=== PATIENT | female | born 1995 | race African-American/Black ===

== ENCOUNTER 2017-06-14 13:02 | Emergency (ER) | payer SELFPAY ==
[~2017-06-14] VITALS: Ht 165.1 cm; Wt 70.0 kg
[~2017-06-14 13:02] MED LIST: IBUP800T23 PO
[2017-06-14 13:04] VITALS: BP 113/57; PULSE 98; RESP 18; TEMP 99; O2SAT 99
[2017-06-14] MEDS ORDERED: NAPR500T2 PO (14:55)
[2017-06-14] MEDS ORDERED: PHEN1SPR2 PO (14:55)
--- NOTE | 2017-06-14 14:55 | PD ---
HPI Chief Complaint: ENT Complaint Time Seen by Provider: 13:36 Travel History International Travel<30 days: No Contact w/Intl Traveler<30days: No Traveled to known affect area: No History of Present Illness HPI This is a 21-year-old female who presents to the emergency department with sore throat, constant, moderate severity, going on for 3 days associated with a headache. She is able to eat and drink. PFSH Past Medical History Medical History: Denies Significant Hx Developmental Delay: No Diminished Hearing: No Immunizations Current: Yes Tetanus Vaccination: < 5 Years ?: Not : 0 Para: 0 Past Surgical History Surgical History: No Previous Surgery Social History Alcohol Use: No Tobacco Use: No Substance Use: No Allergies-Medications (Allergen,Severity, Reaction): Coded Allergies: No Known Allergies (Verified Adverse Reaction, Unknown, 06/14/17) Reported Meds & Prescriptions Reported Meds & Active Scripts Active No Active Prescriptions or Reported Medications Review of Systems Except as stated in HPI: all other systems reviewed are Neg Physical Exam Narrative GENERAL:Well appearing, no acute distress SKIN: Focused skin assessment warm and dry. HEAD: Atraumatic. Normocephalic. EYES: Pupils equal and round. No injection or drainage. ENT: Mild posterior frontal erythema with no exudates. NECK tender anterior cervical lymphadenopathy. CARDIOVASCULAR: Regular rate and rhythm. No murmur appreciated. RESPIRATORY: Clear to auscultation. Breath sounds equal bilaterally. GASTROINTESTINAL: Abdomen soft, non-tender, nondistended. MUSCULOSKELETAL: No obvious deformities. NEUROLOGICAL: Awake and alert. No obvious cranial nerve deficits. Moving all extremities. PSYCHIATRIC: Appropriate mood and affect; insight and judgment normal. Data Data Last Documented VS Vital Signs Date Time Temp Pulse Resp B/P (MAP) Pulse Ox O2 Delivery O2 Flow Rate FiO2 06/14/17 13:04 99.0 98 18 113/57 (75) 99 Orders Orders Group A Rapid Strep Screen (06/14/17 13:51) Strep Culture (Group A) (06/14/17 14:15) MDM Medical Decision Making Medical Screen Exam Complete: Yes Emergency Medical Condition: Yes Differential Diagnosis Viral pharyngitis, strep pharyngitis, peritonsillar abscess, mononucleosis Narrative Course This is a very well-appearing 21-year-old female who presents to the emergency department with a sore throat. Rapid strep was negative. I suspect this is viral pharyngitis. I think she can be treated conservatively with anti- inflammatories and can follow-up with her primary care physician as needed. Diagnosis Primary Impression: Viral pharyngitis Patient Instructions: General Instructions Additional Instructions: If you develop inability to eat or drink, or severe pain return to the emergency room. Med/Other Pt SpecificInfo: Prescription(s) given Scripts Phenol/Glycerin (Chloraseptic Max [place]) 1.5 %-33 % [place] 1-2 SPR PO Q2HR, #1 BOTTLE Prov: Liset Last MD 06/14/17 Naproxen (Naproxen) 500 Mg Tab 500 MG PO BID Y for PAIN SCALE 4 TO 10, #20 TAB 0 Refills Prov: Liset Last MD 06/14/17 Disposition: 01 DISCHARGE HOME Condition: Stable Liset Last MD Jun 14, 2017 14:55
== END 2017-06-14 15:15 | disposition home or self-care (01) ==
LOC: NETRI 13:02
DX: J20.8 Acute bronchitis due to other specified organisms (principal); R51 Headache
CPT/HCPCS: 87081; 87880; 99283